=== PATIENT | male | born 1990 | race Caucasian/White ===

== ENCOUNTER 2019-01-16 18:43 | Emergency (ER) | payer OTHER ==
--- NOTE | 2019-01-16 18:55 | EDM.PDOC ---
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 He reports he cut his arm on a rail grinder on 01/13/19. He states since that time he has noticed erythema and bruising surrounding the site. He was told by multiple people it was concerning for cellulitis in that he may need IV antibiotics. The lacerated area appears superficial and does have a scab over the area. The surrounding skin does have an oval bruise (just on outside boarder) with erythema proximal to the laceration. He denies being able to express any drainage from the site. He states it is tender with palpation. Patient denies any fever, chills, headache, change in vision, syncope or near syncope. Denies any chest pain, back pain, shortness of breath or cough. Denies any GI or symptoms. Patient has been eating and drinking appropriately. Tetanus has been updated within the last 5 years. Review of systems: As per history of present illness and below otherwise all systems reviewed and negative. Past medical history: As per history of present illness and as reviewed below otherwise noncontributory. Surgical history: As per history of present illness and as reviewed below otherwise noncontributory. Social history: See social history for further information Family history: As per history of present illness and as reviewed below otherwise noncontributory. Physical exam: General: Well-developed and well-nourished 28-year-old male. Alert and oriented. Nontoxic appearing and in no acute distress. HEENT: Atraumatic, normocephalic, pupils equal and reactive bilaterally, negative for conjunctival pallor or scleral icterus, mucous membranes moist, trachea midline. No drooling or trismus noted. No meningeal signs. No hot potato voice noted. Lungs: Clear to auscultation, breath sounds equal bilaterally, chest nontender. Heart: S1S2, regular rate and rhythm without overt murmur Abdomen: Soft, nondistended, nontender. Skin: Patient does have a linear superficial abrasion/laceration to the left distal thigh that (3 finger breaths above the AC space). The surrounding skin is mildly erythematous with a boarder of stages of bruising. This erythema/ bruising is around the laceration site at the distal biceps head and wraps down into the mid tricep. This is non-circumferential. There is no area of fluctuance. Otherwise skin is intact, warm, dry. No lesions or rashes noted. Extremities: See SKIN for details, moves all extremities per self without difficulty or deficits. Neurovascular unremarkable. Neuro: Awake, alert, oriented. Cranial nerves II through XII unremarkable. Cerebellum unremarkable. Motor and sensory unremarkable throughout. Exam nonfocal. Notes: Although the skin is erythematous and does have a boarder of a bruised at various stages. Due to the erythema and recent laceration and in a place him on Keflex. He is concerned that he has cellulitis and was under the impression he needed to be admitted for IV antibiotics. I did offer to do x-ray and lab work, he declines. Area was outlined with a surgical marker. We discussed doing outpatient oral antibiotics with close follow-up with his primary care provider. Supportive care measures were reviewed and discussed. Voices understanding and is agreeable to plan of care. Denies any further questions or concerns at this time. Diagnostics: Declines Therapeutics: None Prescription: Keflex TID x 10 days Mc (#15) Impression: Cellulitis, left upper extremity Laceration Plan: 1. Take the antibiotic as prescribed. Gently wash the area twice daily as discussed. Continue to monitor the area for signs of improvement. 2. Tylenol and/or ibuprofen as needed for pain management. [place] for moderate to severe pain. This medication may cause drowsiness so do not take it will driving her needing to be functioning outside of the house. 3. Follow-up with your primary care provider as discussed. Return to the ED as needed and as discussed. Definitive disposition and diagnosis as appropriate pending reevaluation and review of above. left arm Pain Score (Numeric/FACES): 3 - Related Data Allergies Allergy/AdvReac Type Severity Reaction Status Date / Time Sulfa (Sulfonamide Allergy Cannot Verified 01/16/19 19:04 Antibiotics) Remember Home Meds: Home Meds Amphetamine/Dextroamphetamine [Adderall XR] 30 mg PO DAILY 01/16/19 [History] Review of Systems - Review of Systems Review Of Systems: ROS reveals no pertinent complaints other than HPI. ED EXAM, GENERAL - Physical Exam Exam: See Below (See dictation) Course - Vital Signs Last Recorded V/S: Last Vital Signs Temp 97.6 F 01/16/19 18:50 Pulse 80 01/16/19 18:50 Resp 18 01/16/19 18:50 BP 132/71 01/16/19 18:50 Pulse Ox 96 01/16/19 18:50 Departure - Departure Time of Disposition: 19:24 Disposition: Home, Self-Care 01 Clinical Impression: Laceration Cellulitis Qualifiers: Site of cellulitis: extremity Site of cellulitis of extremity: upper extremity Laterality: left Qualified Code(s): L03.114 - Cellulitis of left upper limb - Discharge Information Instructions: Cellulitis, Adult, [id number] Referrals: PCP,None [Primary Care Provider] - Forms: ED Department Discharge Additional Instructions: The following information is given to patients seen in the emergency department who are being discharged to home. This information is to outline your options for follow-up care. We provide all patients seen in our emergency department with a follow-up referral. The need for follow-up, as well as the timing and circumstances, are variable depending upon the specifics of your emergency department visit. If you don't have a primary care physician on staff, we will provide you with a referral. We always advise you to contact your personal physician following an emergency department visit to inform them of the circumstance of the visit and for follow-up with them and/or the need for any referrals to a consulting specialist. The emergency department will also refer you to a specialist when appropriate. This referral assures that you have the opportunity for follow-up care with a specialist. All of these measure are taken in an effort to provide you with optimal care, which includes your follow-up. Under all circumstances we always encourage you to contact your private physician who remains a resource for coordinating your care. When calling for follow-up care, please make the office aware that this follow-up is from your recent emergency room visit. If for any reason you are refused follow-up, please contact the [facility] Emergency Department at and asked to speak to the emergency department charge nurse. [facility] [address] [place] [address] [facility] [address] [place] [address] 1. Take the antibiotic as prescribed. Gently wash the area twice daily as discussed. Continue to monitor the area for signs of improvement. 2. Tylenol and/or ibuprofen as needed for pain management. [place] for moderate to severe pain. This medication may cause drowsiness so do not take it will driving her needing to be functioning outside of the house. 3. Follow-up with your primary care provider as discussed. Return to the ED as needed and as discussed.
== END 2019-01-16 19:30 | disposition home or self-care (01) ==
LOC: MW.ED 18:43
DX: S41.112A Laceration without foreign body of left upper arm, initial encounter (principal); L03.114 Cellulitis of left upper limb; Z88.2 Allergy status to sulfonamides; W31.89XA Contact with other specified machinery, initial encounter
CPT/HCPCS: 99282